=== PATIENT | male | born 1970 | race Caucasian/White ===

== ENCOUNTER 2018-03-25 11:22 | Day surgery (SDC) | payer OTHER ==
[~2018-03-25] VITALS: Ht 177.8 cm; Wt 105.0 kg
[~2018-03-25 11:22] MED LIST: GABA-529 PO
[2018-03-25] MEDS ORDERED: SODIUM CHLORIDE 0.9% 1,000 ML IV ONE ×2 (11:44→13:00)
[2018-03-25] MEDS ORDERED: GABA-533 PO (11:47)
[2018-03-25] MEDS ORDERED: MIRT15 PO (11:47)
[2018-03-25] MEDS ORDERED: OMEP20 PO (11:47)
[2018-03-25] MEDS ORDERED: NALT380S2 SQ (11:50)
[2018-03-25] MEDS ORDERED: GLYCOPYRROLATE 0.2 MG/ML VIAL IM ONE (12:00)
[2018-03-25] MEDS ORDERED: LIDOCAINE/PF 2% 5 ML VIAL INJ ONE (12:00)
[2018-03-25] MEDS ORDERED: ROCURONIUM BROMIDE 10 MG/ML 5 ML VIAL IVP ONE (12:00)
[2018-03-25] MEDS ORDERED: GLUCAGON,HUMAN RECOMBINANT 1 MG VIAL IVP ONE (12:00)
[2018-03-25] MEDS ORDERED: ALBUTEROL SULFATE 2.5 MG/0.5 ML NEB SOLUTION NEB ONE ×2 (14:30→14:48)
[2018-03-25] MEDS ORDERED: METHYLENE BLUE 1% 10 ML VIAL ONE (18:24)
== END 2018-03-25 15:35 | disposition home or self-care (01) ==
LOC: SURGERY 11:22
PROVIDERS: ATTEND Internal Medicine Gastroenterology
DX: K31.7 Polyp of stomach and duodenum (principal); K29.80 Duodenitis without bleeding; K29.70 Gastritis, unspecified, without bleeding; K44.9 Diaphragmatic hernia without obstruction or gangrene; K22.10 Ulcer of esophagus without bleeding; J45.909 Unspecified asthma, uncomplicated; F41.9 Anxiety disorder, unspecified; K21.9 Gastro-esophageal reflux disease without esophagitis; Z86.19 Personal history of other infectious and parasitic diseases
CPT/HCPCS: 43254; 94640; C1769; J1610; J3490 ×3; J7030; Q9968; 88305; 88312